=== PATIENT | male | born 1940 | race Caucasian/White ===

== ENCOUNTER 2020-10-04 09:47 | Inpatient (IN) ==
[2020-10-04] MEDS ORDERED: NS 0.9% 1000 ml BAG 1,000 ML IV ONE (09:48)
[2020-10-04 10:00] LABS: ABS Lymphocytes 0.6 10^3/ul (1.0-4.8); ABS Monocytes 0.9 10^3/ul (0-0.8); ABS Neutrophils 8.8 10^3/ul (1.5-7.7); Eosinophil % 0.3 %; Hematocrit 36 % (42-52); Hemoglobin 13.2 g/dL (14.0-18.0); Lymphocyte % 5.7 %; Mean Corpuscular HGB Conc 36 g/dL (31-36); Mean Corpuscular Hemoglobin 35 pg (27-31); Mean Corpuscular Volume 95 fL (80-94); Mean Platelet Volume 6.2 fL (7.4-10.4); Platelet Count 321 10^3/uL (150-450); Red Blood Count 3.83 10^6 /uL (4.18-5.48); Red Cell Distribution Width 13 % (10-15); White Blood Count 10.4 10^3/uL (3.5-10.8)
[2020-10-04] MEDS ORDERED: Iodixanol (CONTRAST) 320 MG/ML 100 ML SDV IV ONE (10:04)
[2020-10-04 10:17] LABS: Albumin 4.6 g/dL (3.2-5.2); Albumin/Globulin Ratio 1.6 (1-3); Calcium 9.5 mg/dL (8.6-10.3); EGFR African American 84.3 (>60); EGFR Non-African American 69.7 (>60); Globulin 2.9 g/dL (2-4); HDL Cholesterol 64.4 mg/dL; Potassium 4.4 mmol/L (3.5-5.0); Total Protein 7.5 g/dL (6.4-8.9)
[2020-10-04 10:18] LABS: Troponin I 0.01 ng/mL (<0.03)
[2020-10-04 10:50] LABS: INR 1.09 (0.86-1.15)
[2020-10-04] MEDS ORDERED: niCARdipine 0.1MG/ML IVPREMIX 20 MG/200 ML BAG IV SCH (11:00)
[2020-10-04 11:01] LABS: Urine Appearance Cloudy; Urine Bilirubin Negative (Negative); Urine Blood Negative (Negative); Urine Color Yellow; Urine Glucose Negative (Negative); Urine Ketones Negative (Negative); Urine Nitrite Negative (Negative); Urine Protein Negative (Negative); Urine Specific Gravity 1.013 (1.002-1.030); Urine Urobilinogen Negative (Negative)
[2020-10-04 14:34] LABS: TSH Ultra Thyroid Stim Horm 1.43 mcIU/mL (0.34-5.60)
[2020-10-04] MEDS ORDERED: Dextrose 50% Syringe 50 ml 25 GM/50 ML SYRINGE IV PUSH PRN (16:39)
[2020-10-04] MEDS ORDERED: D5W 500 ml BAG 500 ML IV ONE (17:19)
[2020-10-04] MEDS: Enoxaparin 30 MG/0.3 ML SYR SUBCUT SCH (19:52)
[2020-10-04] MEDS: Aspirin EC 81 mg TAB.EC (enteric coated) PO SCH (19:52)
[2020-10-05 05:47] LABS: ABS Eosinophils 0.2 10^3/ul (0-0.6); ABS Lymphocytes 0.7 10^3/ul (1.0-4.8); ABS Monocytes 0.8 10^3/ul (0-0.8); ABS Neutrophils 2.8 10^3/ul (1.5-7.7); Eosinophil % 3.6 %; Hematocrit 32 % (42-52); Hemoglobin 11.6 g/dL (14.0-18.0); Lymphocyte % 15.1 %; Mean Corpuscular HGB Conc 36 g/dL (31-36); Mean Corpuscular Hemoglobin 34 pg (27-31); Mean Corpuscular Volume 96 fL (80-94); Mean Platelet Volume 6.4 fL (7.4-10.4); Platelet Count 296 10^3/uL (150-450); Red Blood Count 3.38 10^6 /uL (4.18-5.48); Red Cell Distribution Width 13 % (10-15); White Blood Count 4.5 10^3/uL (3.5-10.8)
[2020-10-05 06:42] LABS: Calcium 8.6 mg/dL (8.6-10.3); Magnesium 1.9 mg/dL (1.9-2.7); Potassium 4.1 mmol/L (3.5-5.0)
[2020-10-05 06:46] LABS: EGFR African American 97.2 (>60); EGFR Non-African American 80.4 (>60); Phosphorus 3.4 mg/dL (2.5-5.0)
[2020-10-05] MEDS: Aspirin EC 81 mg TAB.EC (enteric coated) PO SCH (08:05)
[2020-10-05 11:45] LABS: Calcium 8.9 mg/dL (8.6-10.3); EGFR African American 91.4 (>60); EGFR Non-African American 75.6 (>60)
[2020-10-05] MEDS: Enoxaparin 30 MG/0.3 ML SYR SUBCUT SCH (16:38)
[2020-10-05 17:02] LABS: Calcium 8.9 mg/dL (8.6-10.3); EGFR African American 90.3 (>60); EGFR Non-African American 74.7 (>60)
[2020-10-05 21:58] LABS: EGFR African American 97.2 (>60); EGFR Non-African American 80.4 (>60); Potassium 4.2 mmol/L (3.5-5.0)
[2020-10-06 06:48] LABS: Hematocrit 35 % (42-52); Hemoglobin 12.3 g/dL (14.0-18.0); Mean Corpuscular HGB Conc 35 g/dL (31-36); Mean Corpuscular Hemoglobin 34 pg (27-31); Mean Corpuscular Volume 96 fL (80-94); Mean Platelet Volume 6.2 fL (7.4-10.4); Platelet Count 280 10^3/uL (150-450); Red Blood Count 3.61 10^6 /uL (4.18-5.48); Red Cell Distribution Width 12 % (10-15); White Blood Count 4.9 10^3/uL (3.5-10.8)
[2020-10-06 07:04] LABS: Calcium 8.8 mg/dL (8.6-10.3); EGFR African American 116.2 (>60); Phosphorus 2.7 mg/dL (2.5-5.0); Potassium 4.3 mmol/L (3.5-5.0)
[2020-10-06] MEDS: Aspirin EC 81 mg TAB.EC (enteric coated) PO SCH (08:47)
[2020-10-06] MEDS: Enoxaparin 30 MG/0.3 ML SYR SUBCUT SCH (15:03)
[2020-10-07] MEDS: Aspirin EC 81 mg TAB.EC (enteric coated) PO SCH (08:09)
[2020-10-07 10:00] LABS: Calcium 9.4 mg/dL (8.6-10.3); EGFR African American 112.8 (>60); EGFR Non-African American 93.3 (>60); Potassium 4.4 mmol/L (3.5-5.0)
[2020-10-07] MEDS: Enoxaparin 30 MG/0.3 ML SYR SUBCUT SCH (15:13)
[2020-10-08 05:47] LABS: Calcium 8.8 mg/dL (8.6-10.3); EGFR African American 109.7 (>60); EGFR Non-African American 90.6 (>60); Potassium 4.5 mmol/L (3.5-5.0)
[2020-10-08] MEDS: Aspirin EC 81 mg TAB.EC (enteric coated) PO SCH (07:50)
[2020-10-08 14:17] VITALS: BP 106/50
== END 2020-10-08 14:05 | disposition home or self-care (01) | DRG 645 ==
LOC: ED 09:47 → SUATTDRO 13:02 → ICU 13:02 → MEDTELE 10-06 22:00
PROVIDERS: ADMIT Internal Medicine; ATTEND Internal Medicine